=== PATIENT | male | born 1990 | race Caucasian/White ===

== ENCOUNTER 2020-08-15 15:57 | Emergency (ER) | payer SELFPAY ==
[~2020-08-15] VITALS: Ht 170.2 cm; Wt 65.0 kg
--- NOTE | 2020-08-15 17:11 | RAD ---
Scrotal ultrasound: Reason for examination: Bilateral testicular pain. History of previous torsion. Right testicle measures 4.5 x 3.7 x 2.9 cm greatest dimension and shows good vascular flow without a focal lesion. The right epididymis appears be heterogeneous with increased vascular flow which may re flect epididymitis. There is no hydrocele or varicocele. The left testicle measures 3.2 x 3.8 x 3.6 cm in greatest dimension and shows good vascular flow with out a focal lesion. The left epididymis also is heterogeneous and shows increased vascular flow sugge sting epididymitis. There is no hydrocele or varicocele. IMPRESSION: Increased vascularity and heterogeneity at both epididymides suggesting epididymitis. Good vascular flow to the testicles bilaterally with no evidence of torsion. Electronically signed by: Carly Moulton MD (08/15/2020 5:09 PM) [facility]
--- NOTE | 2020-08-15 17:27 | ED.ADGEN ---
Past Medical History Past Medical History: No Pertinent History Past Surgical History: Other Additional Past Surgical Histo: TESTICULAR TORSION Smoking Status: Current Every Day Smoker Alcohol Use: Occasionally General Adult EDM: Chief Complaint: TESTICULAR PAIN OR INJURY HPI: HPI: Patient is a 30 year old male who presents to the emergency department with complaints of bilateral testicular pain since 4:00 this morning. Patient repo rts a history of previous testicular torsion and reports that his pain feels just like his previous pain. He denies any dysuria, hematuria, or abnormal discharge from his penis. Patient denies any fever, abdominal pain, nausea, vomiting, fever, cough, or shortness of breath. He currently rates his pain a 10 out of 10 on pain scale, he denies any alleviating factors. Review of Systems: Review of Systems: Complete ROS is negative unless otherwise noted in HPI. Current Medications: Current Medications Medications (Trade) Dose Ordered Sig/Nikhil Start Time Stop Time Status Last Admin Dose Admin Ceftriaxone Sodium (Rocephin Im) 500 mg 1X ONCE 08/15/20 18:45 08/15/20 18:46 DC 08/15/20 18:41 500 MG Morphine Sulfate (Morphine Sulfate) 4 mg 1X ONCE 08/15/20 17:30 08/15/20 17:31 DC 08/15/20 17:44 4 MG Ondansetron HCl (Zofran) 4 mg 1X ONCE 08/15/20 17:30 08/15/20 17:31 DC 08/15/20 17:45 4 MG Sodium Chloride 1,000 ml @ 1,000 mls/hr 1X ONCE 08/15/20 17:30 08/15/20 18:29 DC 08/15/20 17:45 1,000 MLS/HR Allergies: Allergies: Allergies Coded Allergies Type Severity Reaction Last Updated Verified No Known Drug Allergies 08/15/20 No Physical Exam: PE: See Above Constitutional: Well developed, well nourished, no acute distress, non-toxic appearance. [] HENT: Normocephalic, atraumatic, bilateral external ears normal, nose normal. [] Eyes: PERRLA, EOMI, conjunctiva normal, no discharge. [] Neck: Normal range of motion, no stridor. [] Cardiovascular:Heart rate regular rhythm Lungs & Thorax: Respirations even and unlabored, no retractions, no respiratory distress Abdomen: soft, no tenderness Male : Circumcised, normal urethra, bilateral testicular tenderness to palpation without scrotal erythema, warmth, or edema (Clau RN at bedside for main galley scullion) Skin: Warm, dry, no erythema, no rash. [] Extremities: No cyanosis, ROM intact, no edema. [] Neurologic: Alert and oriented X 3, no focal deficits noted. [] Psychologic: Affect normal, judgement normal, mood normal. [] Current Patient Data: Vital Signs: Vital Signs Date Time Temp Pulse Resp B/P (MAP) Pulse Ox O2 Delivery O2 Flow Rate FiO2 08/15/20 19:13 76 129/72 (91) 96 Room Air 08/15/20 16:10 97.9 18 97.9 EKG: EKG: [] Heart Score: Risk Factors: Risk Factors: DM, Current or recent (<one month) smoker, HTN, HLP, family history of CAD, obesity. Risk Scores: Score 0 - 3: 2.5% MACE over next 6 weeks - Discharge Home Score 4 - 6: 20.3% MACE over next 6 weeks - Admit for Clinical Observation Score 7 - 10: 72.7% MACE over next 6 weeks - Early Invasive Strategies Radiology/Procedures: Radiology/Procedures: PROCEDURE: TESTICULAR/SCROTUM Scrotal ultrasound: Reason for examination: Bilateral testicular pain. History of previous torsion. Right testicle measures 4.5 x 3.7 x 2.9 cm greatest dimension and shows good vascular flow without a focal lesion. The right epididymis appears be heterogeneous with increased vascular flow which may reflect epididymitis. There is no hydrocele or varicocele. The left testicle measures 3.2 x 3.8 x 3.6 cm in greatest dimension and shows good vascular flow without a focal lesion. The left epididymis also is heterogeneous and shows increased vascular flow suggesting epididymitis. There is no hydrocele or varicocele. IMPRESSION: Increased vascularity and heterogeneity at both epididymides suggesting epididymitis. Good vascular flow to the testicles bilaterally with no evidence of torsion.[] Course & Med Decision Making: Course & Med Decision Making Pertinent Labs and Imaging studies reviewed. (See chart for details) 30-year-old male who presented to the emergency department with complaints of bilateral testicular pain since 4:00 this morning. Ultrasound was negative for torsion, findings are consistent with epididymitis. Patient refused to give urine specimen while in the emergency department he also refused a catheter specimen. Patient was treated with 500 mg IM Rocephin and given a prescription for doxycycline 100 mg p.o. twice daily for 10 days. I encouraged him to follow-up with his primary care doctor next week and return to the ER if symptoms worsen. Patient verbalized an understanding of home care, medications, follow-up, and return to ED instructions and was in agreement with the plan of care. [] Dragon Disclaimer: Dragon Disclaimer: This electronic medical record was generated, in whole or in part, using a voice recognition dictation system. Departure Departure Impression: Primary Impression: Epididymitis, bilateral Disposition: 01 DC HOME SELF CARE/HOMELESS Condition: STABLE Referrals: NO PCP (PCP) Patient Instructions: Epididymitis Additional Instructions: Fill prescription(s) and use as directed. Avoid bladder irritants such as caffeine, carbonation, and spicy foods. Increase clear fluids. Follow up with your primary care doctor if symptoms persist, return to the ER if symptoms wo rsen. Andrew [facility] [address] [place] [address] [facility] [address] [place] [address] [facility] [address] [facility] [place] [address] [facility] [address] [place] [address] [facility] [address] [place] [address] [facility] [address] [place] [address] [facility] [address] [place] [address] [facility] [address] [place] [address] [facility] [address] [place] [address] [facility] [address] [place] [address] Scripts Doxycycline Hyclate (DOXYCYCLINE HYCLATE) 100 Mg Tablet 1 TAB PO BID for 10 Days, #20 TAB 0 Refills Prov: LAURA SHEPHERD [employer] SPECIALIST 08/15/20 LAURA SHEPHERD [employer] CO[employer]INATION SPECIALIST Aug 15, 2020 17:27
[2020-08-15] MEDS ORDERED: IV NORMAL SALINE 1000ML BAG 1,000 ML IV ONE (17:30)
[2020-08-15] MEDS ORDERED: MORPHINE SULFATE 4 MG/ML VIAL. IV ONE (17:30)
[2020-08-15] MEDS ORDERED: ONDANSETRON PF 4 MG/2 ML VIAL. IV ONE (17:30)
[2020-08-15] MEDS ORDERED: cefTRIAXone IM 1 GM VIAL IM ONE (18:30)
[2020-08-15] MEDS ORDERED: DOXY100T PO (18:34)
[2020-08-15] MEDS ORDERED: cefTRIAXone IM 250 MG VIAL IM ONE (18:45)
[2020-08-15 19:13] VITALS: BP 129/72
== END 2020-08-15 19:20 | disposition home or self-care (01) ==
LOC: ER 15:57
DX: N45.1 Epididymitis (principal); N50.811 Right testicular pain; N50.812 Left testicular pain; F17.200 Nicotine dependence, unspecified, uncomplicated; Z98.890 Other specified postprocedural states
CPT/HCPCS: 76870; 96361; 96372; 96374; 96375; 99285; J0696; J2270; J2405; J7030

== ENCOUNTER 2021-10-17 14:06 | Emergency (ER) | payer SELFPAY ==
[~2021-10-17] VITALS: Ht 167.6 cm; Wt 68.0 kg
[~2021-10-17 14:06] MED LIST: DOXY100T PO
[2021-10-17] MEDS ORDERED: MORPHINE SULFATE 4 MG/ML INJ. ONE (14:12)
[2021-10-17] MEDS ORDERED: MORPHINE SULFATE 4 MG/ML INJ. IM ONE (14:15)
[2021-10-17] MEDS ORDERED: HYDROmorphone 2 MG/ML INJ. IVP ONE (14:30)
[2021-10-17] MEDS ORDERED: MORPHINE SULFATE 4 MG/ML INJ. IVP ONE (14:30)
--- NOTE | 2021-10-17 14:41 | RAD ---
Study: XR HAND_RIGHT 3 VIEWS Indication: Laceration. Comparison: None. Findings: Soft tissue laceration at the distal aspect of the thumb, index and long fingers more so than ring fi nger. Traumatic amputation of a portion of the thumb, index and long finger distal phalanges, mainly the eddie, with surrounding small fracture fragments. The most numerous fracture fragments are adjace nt to the long finger distal phalanx. The tip of the ring finger distal phalanx remains intact. Impression: Traumatic soft tissue and osseous amputation at the distal thumb, index and long fingers centered at the eddie. Soft tissue injury at the tip of the right finger with the distal phalanx intact. Electronically signed by: ZION DEL VALLE MD (10/17/2021 2:39 PM) [facility]
--- NOTE | 2021-10-17 15:24 | PHYS DOC ---
Past Medical History Past Medical History: No Pertinent History Past Surgical History: Other Additional Past Surgical Histo: TESTICULAR TORSION Smoking Status: Current Every Day Smoker Alcohol Use: Occasionally General Adult EDM: Chief Complaint: TRAUMA ACTIVATION HPI: HPI: Patient is a 31 year old right hand dominant individual accidentally cut his hand on a table saw today. Patient reports distal numbness of his thumb and pain in his index and middle finger. Review of Systems: Review of Systems: Constitutional: Denies fever or chills. Eyes: Denies change in visual acuity. HENT: Denies nasal congestion or sore throat. Respiratory: Denies cough or shortness of breath. Cardiovascular: Denies chest pain or edema. GI: Denies abdominal pain, nausea, vomiting, bloody stools or diarrhea. : Denies dysuria. Musculoskeletal: Denies back pain or joint pain. Integument: Right hand injury. Denies rash. Neurologic: Denies headache, focal weakness or sensory changes. Endocrine: Denies polyuria or polydipsia. Lymphatic: Denies swollen glands. Psychiatric: Denies depression or anxiety. Heart Score: C/O Chest Pain: No Risk Factors: Risk Factors: DM, Current or recent (<one month) smoker, HTN, HLP, family history of CAD, obesity. Risk Scores: Score 0 - 3: 2.5% MACE over next 6 weeks - Discharge Home Score 4 - 6: 20.3% MACE over next 6 weeks - Admit for Clinical Observation Score 7 - 10: 72.7% MACE over next 6 weeks - Early Invasive Strategies Current Medications: Current Medications Medications (Trade) Dose Ordered Sig/Nikhil Start Time Stop Time Status Last Admin Dose Admin Cefazolin Sodium/ Dextrose 50 ml @ 100 mls/hr 1X ONCE 10/17/21 14:30 10/17/21 14:59 DC 10/17/21 14:28 100 MLS/HR Hydromorphone HCl (Dilaudid) 1 mg 1X ONCE 10/17/21 14:30 10/17/21 14:31 DC 10/17/21 14:33 1 MG Morphine Sulfate (Morphine Sulfate) 4 mg 1X ONCE 10/17/21 14:30 10/17/21 14:31 DC 10/17/21 14:15 4 MG Allergies: Allergies: Allergies Coded Allergies Type Severity Reaction Last Updated Verified No Known Drug Allergies 08/15/20 No Physical Exam: PE: Constitutional: Well developed, well nourished patient in acute distress and pain HENT: Normocephalic, atraumatic, bilateral external ears normal, oropharynx moist, no oral exudates, nose normal. [] Eyes: PERRLA, EOMI, conjunctiva normal, no discharge. [] Neck: Normal range of motion, no tenderness, supple, no stridor. [] Cardiovascular:Heart rate regular rhythm, no murmur [] Lungs & Thorax: Bilateral breath sounds clear to auscultation [] Abdomen: Bowel sounds normal, soft, no tenderness, no masses, no pulsatile masses. [] Skin: Warm, dry, no erythema, no rash. [] Back: No tenderness, no CVA tenderness. [] Extremities: Patient is a volar angulated amputation of the distal thumb involving the nailbed. Patient also has a distal tip amputation of the index and middle finger. Patient has a laceration of the ring finger. Patient unable to demonstrate mobility and his thumb. Patient able to flex and extend his fingers 2 through 5. Neurologic: Alert and oriented X 3, normal motor function, normal sensory function, no focal deficits noted. [] Psychologic: Affect normal, judgement normal, mood normal. [] Current Patient Data: Vital Signs: Vital Signs Date Time Temp Pulse Resp B/P (MAP) Pulse Ox O2 Delivery O2 Flow Rate FiO2 10/17/21 14:33 27 96 Room Air 10/17/21 14:06 97.6 79 135/82 (99) 97.6 EKG: EKG: [] Radiology/Procedures: Radiology/Procedures: Findings: Soft tissue laceration at the distal aspect of the thumb, index and long fingers more so than ring finger. Traumatic amputation of a portion of the thumb, index and long finger distal phalanges, mainly the eddie, with surrounding small fracture fragments. The most numerous fracture fragments are adjacent to the long finger distal phalanx. The tip of the ring finger distal phalanx remains intact. Impression: Traumatic soft tissue and osseous amputation at the distal thumb, index and long fingers centered at the eddie. Soft tissue injury at the tip of the right finger with the distal phalanx intact. Electronically signed by: ZION DEL VALLE MD (10/17/2021 2:39 PM) [facility] Course & Med Decision Making: Course & Med Decision Making Pertinent Labs and Imaging studies reviewed. (See chart for details) Discussed the case with Dr. Buckner from [facility] who specializes in hand. Patient was accepted to their facility and will be transferred over for further treatment. Patient's tetanus has been updated Patient given antibiotics while awaiting transfer. Patient required 4 mg of morphine, and 1 mg of Dilaudid IV for adequate pain control. Dragon Disclaimer: Dragon Disclaimer: This electronic medical record was generated, in whole or in part, using a voice recognition dictation system. Departure Departure Referrals: NO PCP (PCP) ARABELLA SKINNER DO Oct 17, 2021 15:23
[2021-10-17 16:20] VITALS: BP 123/75
== END 2021-10-17 16:20 | disposition short-term general hospital (02) ==
LOC: ER 14:06
DX: S61.011A Laceration without foreign body of right thumb without damage to nail, initial encounter (principal); S61.210A Laceration without foreign body of right index finger without damage to nail, initial encounter; S61.212A Laceration without foreign body of right middle finger without damage to nail, initial encounter; F17.200 Nicotine dependence, unspecified, uncomplicated; Y28.8XXA Contact with other sharp object, undetermined intent, initial encounter; Y93.89 Activity, other specified; Y92.89 Other specified places as the place of occurrence of the external cause; Y99.8 Other external cause status
CPT/HCPCS: 73130; 96365; 96375; 99285; J0690; J1170; J2270